=== PATIENT | male | born 1980 | race Caucasian/White ===

== ENCOUNTER 2018-05-12 09:41 | Emergency (ER) | payer MEDICAID ==
[~2018-05-12] VITALS: Ht 167.6 cm; Wt 76.7 kg
[2018-05-12] MEDS ORDERED: AMMONIA NASAL INHALATION 1 EA PACK NAS ONE ×2 (09:44→10:00)
--- NOTE | 2018-05-12 09:52 | NUR ---
PT JAYSHREE FROM THE STREETS FOR POSSIBLE ETOH. NARCAN GIVEN, BG [address] RESPONDS TO PAINFUL STIMULI. PT ON MONITOR IN BED 12. VSS. WILL CONTINUE TO MONITOR.
--- NOTE | 2018-05-12 10:17 | NUR ---
PT HAS POSTIVE GAG REFLEX
[2018-05-12 10:18] LABS: BASOPHILS % (AUTO) 0.4 % (0.0-2.0); EOSINOPHILS % (AUTO) 1.4 % (0.0-6.0); HEMATOCRIT 44 % (39-51); HEMOGLOBIN 14.6 g/dL (13.5-17.5); LYMPHOCYTES # (AUTO) 2.6 /CMM (0.8-4.8); LYMPHOCYTES % (AUTO) 43.8 % (20.0-44.0); MEAN CORPUSCULAR HGB CONC 33 g/dl (31.0-36.0); MEAN CORPUSCULAR VOLUME 95 fL (80-96); MONOCYTES # (AUTO) 0.4 /CMM (0.1-1.30); MONOCYTES % (AUTO) 6.2 % (2.0-12.0); NEUTROPHILS # (AUTO) 2.9 /CMM (1.8-8.9); NEUTROPHILS % (AUTO) 48.2 % (43.0-81.0); PLATELET COUNT (AUTO) 305 /CMM (150-450); RED BLOOD CELL COUNT(AUTO) 4.68 MIL/uL (4.5-6.0); WHITE BLOOD COUNT (AUTO) 5.9 K/uL (4.3-11.0)
[2018-05-12 10:24] LABS: CALCIUM, SERUM 7.9 mg/dL (8.5-10.1); CREATININE 0.8 mg/dL (0.6-1.3); POTASSIUM 3.6 mmol/L (3.5-5.1)
--- NOTE | 2018-05-12 10:54 | NUR ---
BACK FROM CT
[2018-05-12] MEDS ORDERED: IV NS 0.9% 1,000 ML BAG IV ONE (11:00)
[2018-05-12 13:57] VITALS: BP 109/61
--- NOTE | 2018-05-12 13:58 | NUR ---
Patient is resting comfortably in bed with eyes closed. VSS. WILL CONTINUE TO MONITOR.
== END 2018-05-12 15:43 | disposition left against medical advice (07) ==
LOC: ER 09:44 → EDBD 09:44 → ER 15:43
DX: F10.129 Alcohol abuse with intoxication, unspecified (principal); G93.40 Encephalopathy, unspecified; Y90.8 Blood alcohol level of 240 mg/100 ml or more
CPT/HCPCS: 36415; 70450-TC; 80048-TC; 80305; 82962-TC; 85025-TC; A4606; G0480; J7030

== ENCOUNTER 2018-05-14 04:25 | Emergency (ER) | payer SELFPAY ==
[~2018-05-14] VITALS: Ht 177.8 cm; Wt 70.3 kg
--- NOTE | 2018-05-14 04:37 | NUR ---
PT BIB [facility]. PT WAS ON THE BUS AND THE BRICK SETTER OPERATOR CALLED [employer] BECAUSE PT WAS NOT ANSWERING QUESTIONS AND COULD NOT WALK WITH A STEADY GAIT. [employer] CALLED [facility] BECAUSE PT WOULD NOT ANSWER QUESTIONS. PT IS NOT ANSWERING QUESTIONS FOR TRIAGE. DR Sofia BRO IS AT THE BEDSIDE EVALUATING THE PT.
--- NOTE | 2018-05-14 04:44 | NUR ---
ACCUCHECK IN PROGRESS AT THE BEDSIDE.
--- NOTE | 2018-05-14 04:44 | NUR ---
ROBERT, KICK PLATE INSTALLER, IS AT THE BEDSIDE FOR BLOOD DRAW.
[2018-05-14 04:59] LABS: BASOPHILS # (AUTO) 0.1 /CMM (0.0-0.2); EOSINOPHILS % (AUTO) 1.4 % (0.0-6.0); HEMATOCRIT 42 % (39-51); HEMOGLOBIN 13.8 g/dL (13.5-17.5); LYMPHOCYTES # (AUTO) 2.9 /CMM (0.8-4.8); LYMPHOCYTES % (AUTO) 36.4 % (20.0-44.0); MEAN CORPUSCULAR HGB CONC 33 g/dl (31.0-36.0); MEAN CORPUSCULAR VOLUME 94 fL (80-96); MONOCYTES # (AUTO) 0.5 /CMM (0.1-1.30); MONOCYTES % (AUTO) 6.6 % (2.0-12.0); NEUTROPHILS # (AUTO) 4.3 /CMM (1.8-8.9); NEUTROPHILS % (AUTO) 54.6 % (43.0-81.0); PLATELET COUNT (AUTO) 271 /CMM (150-450); RED BLOOD CELL COUNT(AUTO) 4.44 MIL/uL (4.5-6.0); WHITE BLOOD COUNT (AUTO) 7.9 K/uL (4.3-11.0)
[2018-05-14 05:07] LABS: CALCIUM, SERUM 7.6 mg/dL (8.5-10.1); CREATININE 0.8 mg/dL (0.6-1.3); POTASSIUM 3.9 mmol/L (3.5-5.1)
--- NOTE | 2018-05-14 05:10 | NUR ---
PT IS SLEEPING SOUNDLY. UNABLE TO OBTAIN A URINE SAMPLE AT THIS TIME.
[2018-05-14 05:14] LABS: SALICYLATE 2.7 mg/dL (2.8-20.0)
--- NOTE | 2018-05-14 06:15 | NUR ---
PT IS SLEEPING SOUNDLY AND IS NOT EASILY AROUSED. PT REFUSED ALL MONITOR LEADS, ETC. WILL CONTINUE TO MONITOR THE PT.
--- NOTE | 2018-05-14 07:23 | NUR ---
REPORT GIVEN TO DIANNE PATTERSON FOR [facility].
--- NOTE | 2018-05-14 07:24 | NUR ---
RECEIVED REPORT FROM DIANNE MARADIAGA, PT IS ASLEEP IN THE BED, EASILY AROUSABLE BUT UNCOOPERATIVE.
--- NOTE | 2018-05-14 09:57 | NUR ---
Patient discharged to home in stable condition. Written and verbal after care instructions given. Patient verbalizes understanding of instruction.
[2018-05-14 10:49] VITALS: BP 121/68
== END 2018-05-14 10:49 | disposition home or self-care (01) ==
LOC: ER 04:26
DX: F10.921 Alcohol use, unspecified with intoxication delirium (principal); R40.4 Transient alteration of awareness; Z59.0 Homelessness; Y90.8 Blood alcohol level of 240 mg/100 ml or more
CPT/HCPCS: 36415; 80048; 80329; 82962; 85025; 99283; A4606; G0480 ×2; Z7610